=== PATIENT | female | born 1980 | race American Indian/Alaskan Native ===

== ENCOUNTER 2017-07-18 09:47 | Inpatient (IN) | payer OTHER ==
--- NOTE | 2017-07-18 10:49 | XRay Report ---
ROUTINE CHEST, TWO VIEWS: HISTORY: Shortness of breath. The trachea, heart, mediastinal contour, lung mcclain and bony thorax are unremarkable. IMPRESSION: Unremarkable chest x-ray.
[2017-07-18 11:35] LABS: Anion Gap 18 mmol/L; BUN/Creatinine Ratio 16; Blood Urea Nitrogen 8 mg/dL (7-17); Calcium 8.9 mg/dL (8.4-10.2); Carbon Dioxide 22 mmol/L (22-30); Chloride 104.1 mmol/L (98-107); Glucose 85 mg/dL (65-100); Potassium 3.9 mmol/L (3.6-5.0); Sodium 140 mmol/L (137-145)
[2017-07-18 11:39] LABS: Basophils % (Auto) 0.6 % (0.0-1.8); Eosinophils % (Auto) 0.7 % (0.0-4.3); Hematocrit 35.3 % (30.3-42.9); Hemoglobin 11.6 gm/dl (10.1-14.3); Mean Corpuscular HGB Conc 33 % (30-34); Mean Corpuscular Hemoglobin 26 pg (28-32); Mean Corpuscular Volume 79 fl (79-97); Platelet Count 304 K/mm3 (140-440); Red Blood Count 4.49 M/mm3 (3.65-5.03); Red Cell Distribution Width 14.2 % (13.2-15.2); White Blood Count 6.6 K/mm3 (4.5-11.0)
[2017-07-18 11:40] LABS: Diff Status Complete
[2017-07-18 12:11] LABS: INR 0.95 (0.87-1.13)
[2017-07-18 12:12] LABS: Partial Thromboplastin Time 28.6 Sec. (24.2-36.6)
[2017-07-18 12:34] LABS: Alanine Aminotransferase 28 units/L (7-56); Albumin 3.9 g/dL (3.9-5); Albumin/Globulin Ratio 1.5 %; Alkaline Phosphatase 78 units/L (35-129); Total Protein 6.5 g/dL (6.3-8.2)
[2017-07-18 12:36] LABS: Bilirubin,Direct < 0.2 mg/dL (0-0.2)
--- NOTE | 2017-07-18 14:28 | Emergency Department Report ---
ED Chest Pain HPI - General Chief Complaint: Chest Pain Stated Complaint: CP Time Seen by Provider: 07/18/17 10:54 Source: patient, EMS Mode of arrival: Wheelchair Limitations: No Limitations - History of Present Illness Initial Comments: Patient states she's had intermittent chest pain for the past 2 days. She states that [place] the airport. The chest pain began during exertion. She states that she's had some occasional cough. She's had some shortness of breath associated with the chest pain. The chest pain does not radiate. She denies nausea vomiting excessive sweating or dizziness. She' s had no prior cardiac workup. She denies leg pain or swelling. She's not had any recent travel. She has no family history of CAD/VTE that she is aware of. MD Complaint: chest pain -: Gradual Onset: during exertion Pain Location: substernal Pain Radiation: none Severity: moderate Severity scale (0 -10): 0 Quality: tightness Consistency: intermittent Improves With: nothing Worsens With: nothing re: denies: nausea, vomting, diaphoresis, dyspnea, sense of impending doom Other Symptoms: denies: cough, fever, syncope Treatments Prior to Arrival: none Aspirin use within the Past 7 Days: (0) No - Related Data Home Medications Medication Instructions Recorded Confirmed Last Taken No Known Home Medications [No 07/18/17 07/18/17 Unknown Reported Home Medications] Allergies Allergy/AdvReac Type Severity Reaction Status Date / Time No Known Allergies Allergy Unverified 07/18/17 10:07 Heart Score - HEART Score History: Moderately suspicious EKG: Non-specific Age: < 45 Risk factors: 1-2 risk factors Troponin: < normal limit HEART Score: 3 - Critical Actions Critical Actions: 0-3 pts:0.9-1.7%risk of adverse cardiac event.Candidate for discharge ED Review of Systems ROS: Stated complaint: CP Other details as noted in HPI Constitutional: denies: chills, fever Eyes: denies: eye pain, eye discharge, vision change ENT: denies: ear pain, throat pain Respiratory: shortness of breath. denies: cough, wheezing Cardiovascular: chest pain. denies: palpitations Endocrine: no symptoms reported Gastrointestinal: denies: abdominal pain, nausea, diarrhea Genitourinary: denies: urgency, dysuria, discharge Musculoskeletal: denies: back pain, joint swelling, arthralgia Skin: denies: rash, lesions Neurological: denies: headache, weakness, paresthesias Psychiatric: denies: anxiety, depression Hematological/Lymphatic: denies: easy bleeding, easy bruising ED Past Medical Hx - Past Medical History Previous Medical History?: No - Surgical History Past Surgical History?: No - Social History Smoking Status: Never Smoker Substance Use Type: Non Opiate Pain, Other - Medications Home Medications: Home Medications Medication Instructions Recorded Confirmed Last Taken Type No Known Home Medications [No 07/18/17 07/18/17 Unknown History Reported Home Medications] ED Physical Exam - General Limitations: No Limitations General appearance: alert, in no apparent distress - Head Head exam: Present: atraumatic, normocephalic - Eye Eye exam: Present: normal appearance, PERRL, EOMI. Absent: scleral icterus - ENT ENT exam: Present: mucous membranes moist - Neck Neck exam: Present: normal inspection - Respiratory Respiratory exam: Present: normal lung sounds bilaterally. Absent: respiratory distress - Cardiovascular Cardiovascular Exam: Present: regular rate, normal rhythm. Absent: systolic murmur, diastolic murmur, rubs, gallop - GI/Abdominal GI/Abdominal exam: Present: soft, normal bowel sounds. Absent: distended, tenderness, guarding, rebound, rigid - Extremities Exam Extremities exam: Present: normal inspection - Back Exam Back exam: Present: normal inspection - Neurological Exam Neurological exam: Present: alert, oriented X3, CN II-XII intact. Absent: motor sensory deficit - Psychiatric Psychiatric exam: Present: normal affect, normal mood - Skin Skin exam: Present: warm, dry, intact, normal color. Absent: rash ED Course Vital Signs 07/18/17 07/18/17 10:07 10:40 Temperature 98.5 F Pulse Rate 89 75 Respiratory 20 16 Rate Blood Pressure 140/77 Blood Pressure 142/84 [Left] O2 Sat by Pulse 100 100 Oximetry - Reevaluation(s) Reevaluation #1: I found that the patient does not yet have IV access. I discussed this with the patient. At this point she will not permit any further attempts at IV. However she states that she would allow the PICC team/vascular to attempt an IV with an ultrasound machine later. She will not allow an attempt at an EJ. He does not meet any reasonable criteria for an emergency central line. In any case he is not willing to have any additional closure at this time. This is then discussed with the hospitalist. She will be admitted for further care and evaluation. 07/18/17 14:28 STEPHANIE score - Stephanie Score Age > 65: (0) No Aspirin use within the Past 7 Days: (0) No 3 or more CAD Risk Factors: (0) No 2 or more Angina events in past 24 hrs: (0) No Known CAD with more than 50% Stenosis: (0) No Elevated Cardiac Markers: (0) No ST Deviation Greater than 0.5mm: (0) No STEPHANIE Score: 0 ED Medical Decision Making - Lab Data Result diagrams: 07/18/17 11:01 07/18/17 11:01 - EKG Data -: EKG Interpreted by Me EKG shows normal: sinus rhythm, axis, intervals, QRS complexes, ST-T waves Rate: normal - EKG Data Interpretation: no acute changes - Radiology Data Radiology results: report reviewed interpreted by me: Chest x-ray shows no acute process Critical care attestation.: If time is entered above; I have spent that time in minutes in the direct care of this critically ill patient, excluding procedure time. ED Disposition Clinical Impression: Chest pain Qualifiers: Chest pain type: unspecified Qualified Code(s): R07.9 - Chest pain, unspecified Disposition: DC-09 OP ADMIT IP TO THIS HOSP Is pt being admited?: Yes Does the pt Need Aspirin: Yes Condition: Stable Instructions: Chest Pain (ED) Referrals: PRIMARY CARE, [Primary Care Provider] - 3-5 Days Time of Disposition: 14:31
--- NOTE | 2017-07-18 15:07 | History and Physical Report ---
History of Present Illness Chief complaint: My chest hurts. History of present illness: 36 YO female with Obesity presents to ED for evaluation. Pt states that she has experienced pain in her chest over the past 2 days, with worsening symptoms over the past 8 hours. Pain is 4-6/10, intermittent, substernal, nonradiating, worse with exertion, relieved with rest, associated with shortness of breath, and diaphoresis. Pt denies fever, chills, palpitations, Syncope, productive cough, prolonged travel/immobility, individual/family history of DVT/PE, hemoptysis, unintentional weight loss, night sweats, or recent ill contacts. Pt seen and evaluated in ED and found to have symptoms of ACS as well as accelerated hypertension. [facility], and treated with supplemental oxygen, aspirin, nitro tabs, and morphine for pain. Past History Past Medical History: other (obesity) Past Surgical History: No surgical history, Other (reviewed) Social history: single. denies: smoking, alcohol abuse, prescription drug abuse Family history: hypertension Medications and Allergies Allergies Allergy/AdvReac Type Severity Reaction Status Date / Time No Known Allergies Allergy Unverified 07/18/17 10:07 Home Medications Medication Instructions Recorded Confirmed Last Taken Type No Known Home Medications [No 07/18/17 07/18/17 Unknown History Reported Home Medications] Review of Systems Constitutional: no weight loss, no weight gain, no fever, no chills Ears, nose, mouth and throat: no ear pain, no ear discharge, no tinnitis, no decreased hearing, no nose pain, no nasal congestion, no nasal discharge Breasts: no change in shape, no swelling, no mass Cardiovascular: chest pain, shortness of breath, no orthopnea, no palpitations, no rapid/irregular heart beat Respiratory: no cough, no cough with sputum, no excessive sputum, no hemoptysis Gastrointestinal: no abdominal pain, no nausea, no vomiting, no diarrhea Genitourinary Female: no dysmenorrhea, no pelvic pain, no flank pain, no menorrhagia Rectal: no pain, no incontinence, no bleeding Musculoskeletal: no neck stiffness, no neck pain, no shooting arm pain, no arm numbness/tingling Integumentary: no rash, no pruritis, no redness, no sores, no wounds, no jaundice Neurological: no transient paralysis, no paralysis, no weakness, no parathesias , no numbness, no tingling Psychiatric: no anxiety, no memory loss, no change in sleep habits, no sleep disturbances, no insomnia, no hypersomnia Endocrine: no cold intolerance, no heat intolerance, no polyphagia, no excessive thirst, no polydipsia, no polyuria Hematologic/Lymphatic: no easy bruising, no easy bleeding Allergic/Immunologic: no urticaria, no allergic rhinitis, no wheezing Exam - Constitutional Vitals: Temp Pulse Resp BP Pulse Ox 98.5 F 75 16 142/84 100 07/18/17 10:07 07/18/17 10:40 07/18/17 10:40 07/18/17 10:40 07/18/17 10:40 General appearance: Present: mild distress, obese - EENT Eyes: Present: PERRL ENT: hearing intact, clear oral mucosa - Neck Neck: Present: supple, normal ROM - Respiratory Respiratory effort: normal Respiratory: bilateral: CTA - Cardiovascular Heart Sounds: Present: S1 & S2. Absent: rub, click - Extremities Extremities: pulses symmetrical, No edema Peripheral Pulses: within normal limits - Abdominal General gastrointestinal: Present: soft, non-tender, non-distended, normal bowel sounds Female genitourinary: Present: normal - Integumentary Integumentary: Present: clear, warm, dry - Musculoskeletal Musculoskeletal: gait normal, strength equal bilaterally - Psychiatric Psychiatric: appropriate mood/affect, intact judgment & insight - Neurologic Neurologic: CNII-XII intact, moves all extremities Results - Labs CBC & Chem 7: 07/18/17 11:01 07/18/17 11:01 Labs: Abnormal lab results 07/18/17 07/18/17 Range/Units 11:01 11:01 MCH 26 L (28-32) pg Lymph % (Auto) 43.6 H (13.4-35.0) % [place] % (Auto) 8.9 H (0.0-7.3) % Creatinine 0.5 L (0.7-1.2) mg/dL Assessment and Plan - Patient Problems (1) ACS (acute coronary syndrome) Current Visit: Yes Status: Suspected Plan to address problem: Chest Pain protocol: Serial cardiac enzymes, ekg, telemetry, echo, stress test, Cardiology consulted, d dimer, lipid panel, morphine, supplemental oxygen, nitro , aspirin, (2) Obesity Current Visit: Yes Status: Acute Qualifiers: Body mass index: BMI 33.0-33.9 Plan to address problem: Balanced diet, increased physical activity, (3) Accelerated hypertension Current Visit: Yes Status: Acute Plan to address problem: monitor bp q shift, IV hydralazine prn (4) DVT prophylaxis Current Visit: Yes Status: Acute
[2017-07-18] MEDS ORDERED: DULCOLAX PR PRN (15:10)
[2017-07-18] MEDS ORDERED: ZOFRAN IV PRN (15:10)
[2017-07-18] MEDS ORDERED: PROVENTIL IH PRN (15:10)
[2017-07-18] MEDS ORDERED: TYLENOL PO PRN (15:10)
[2017-07-18] MEDS ORDERED: NITROSTAT SL PRN (15:10)
[2017-07-18] MEDS ORDERED: MILK OF MAGNESIA PO PRN (15:10)
[2017-07-18] MEDS ORDERED: SODIUM CHLORIDE FLUSH SYRINGE 10 ML IV PRN (15:10)
[2017-07-18] MEDS ORDERED: BABY ASPIRIN PO STA (15:24)
[2017-07-18] MEDS ORDERED: BABY ASPIRIN ONE ×2 (17:30→17:37)
[2017-07-19 07:09] VITALS: BP 108/57
--- NOTE | 2017-07-19 12:21 | Progress Note ---
Hospitalist Physical - Constitutional Vitals: Temp Pulse Resp BP Pulse Ox 98.3 F 74 16 108/57 99 07/19/17 05:14 07/19/17 05:14 07/19/17 05:14 07/19/17 05:14 07/19/17 05:14 General appearance: Present: mild distress, obese Results - Labs CBC & Chem 7: 07/18/17 11:01 07/18/17 11:01 Labs: Laboratory Last Values WBC 6.6 K/mm3 (4.5-11.0) 07/18/17 11:01 RBC 4.49 M/mm3 (3.65-5.03) 07/18/17 11:01 Hgb 11.6 gm/dl (10.1-14.3) 07/18/17 11:01 Hct 35.3 % (30.3-42.9) 07/18/17 11:01 MCV 79 fl (79-97) 07/18/17 11:01 MCH 26 pg (28-32) L 07/18/17 11:01 MCHC 33 % (30-34) 07/18/17 11:01 RDW 14.2 % (13.2-15.2) 07/18/17 11:01 Plt Count 304 K/mm3 (140-440) 07/18/17 11:01 Lymph % (Auto) 43.6 % (13.4-35.0) H 07/18/17 11:01 [place] % (Auto) 8.9 % (0.0-7.3) H 07/18/17 11:01 Eos % (Auto) 0.7 % (0.0-4.3) 07/18/17 11:01 Baso % (Auto) 0.6 % (0.0-1.8) 07/18/17 11:01 Lymph # 2.9 K/mm3 (1.2-5.4) 07/18/17 11:01 [place] # 0.6 K/mm3 (0.0-0.8) 07/18/17 11:01 Eos # 0.0 K/mm3 (0.0-0.4) 07/18/17 11:01 Baso # 0.0 K/mm3 (0.0-0.1) 07/18/17 11:01 Add Manual Diff Complete 07/18/17 11:01 Seg Neutrophils % 46.2 % (40.0-70.0) 07/18/17 11:01 Seg Neutrophils # 3.1 K/mm3 (1.8-7.7) 07/18/17 11:01 PT 13.2 Sec. (12.2-14.9) 07/18/17 11:49 INR 0.95 (0.87-1.13) 07/18/17 11:49 APTT 28.6 Sec. (24.2-36.6) 07/18/17 11:49 D-Dimer < 135.00 ng/mlDDU (0-234) 07/18/17 11:49 Sodium 140 mmol/L (137-145) 07/18/17 11:01 Potassium 3.9 mmol/L (3.6-5.0) 07/18/17 11:01 Chloride 104.1 mmol/L (98-107) 07/18/17 11:01 Carbon Dioxide 22 mmol/L (22-30) 07/18/17 11:01 Anion Gap 18 mmol/L 07/18/17 11:01 BUN 8 mg/dL (7-17) 07/18/17 11:01 Creatinine 0.5 mg/dL (0.7-1.2) L 07/18/17 11:01 Estimated GFR > 60 ml/min 07/18/17 11:01 BUN/Creatinine Ratio 16 % 07/18/17 11:01 Glucose 85 mg/dL (65-100) 07/18/17 11:01 Calcium 8.9 mg/dL (8.4-10.2) 07/18/17 11:01 Magnesium 1.80 mg/dL (1.7-2.3) 07/18/17 11:49 Total Bilirubin 0.20 mg/dL (0.1-1.2) 07/18/17 11:49 Direct Bilirubin < 0.2 mg/dL (0-0.2) 07/18/17 11:49 AST 19 units/L (5-40) 07/18/17 11:49 ALT 28 units/L (7-56) 07/18/17 11:49 Alkaline Phosphatase 78 units/L (35-129) 07/18/17 11:49 Troponin T < 0.010 ng/mL (0.00-0.029) 07/18/17 20:44 NT-Pro-B Natriuret Pep 16.03 pg/mL (0-450) 07/18/17 11:49 Total Protein 6.5 g/dL (6.3-8.2) 07/18/17 11:49 Albumin 3.9 g/dL (3.9-5) 07/18/17 11:49 Albumin/Globulin Ratio 1.5 % 07/18/17 11:49 HCG, Qual Negative (Negative) 07/19/17 07:19
--- NOTE | 2017-07-19 14:57 | Discharge Summary ---
<SANDRA GAYLE - Last Filed: 07/21/17 08:22> Providers - Providers Date of Admission: 07/18/17 15:10 Date of discharge: 07/19/17 Attending physician: MARCELINO CURRAN MD 07/18/17 Consult to Cardiac Rehabilitation [CONS] Routine Reason For Exam: Phase I 07/18/17 15:10 Consult to Cardiology [CONS] Routine Consulting Provider: OTONIEL BANKS Reason For Exam: acs Primary care physician: GALLERY DIRECTOR Hospitalization Condition: Stable Hospital course: 36 YO female with Obesity presents to ED for evaluation. Pt states that she has experienced pain in her chest over the past 2 days, with worsening symptoms over the past 8 hours. Pain is 4-6/10, intermittent, substernal, nonradiating, worse with exertion, relieved with rest, associated with shortness of breath, and diaphoresis. Pt denies fever, chills, palpitations, Syncope, productive cough, prolonged travel/immobility, individual/family history of DVT/PE, hemoptysis, unintentional weight loss, night sweats, or recent ill contacts. Chest Xray was unremarkable. Echo revealed EF of 55-60%. Thallium stress test was normal. Discharge Diagnosis Acute Coronary Syndrome Obesity Accelerated HTN Disposition: DC-01 TO HOME OR SELFCARE Core Measure Documentation - Palliative Care Palliative Care/ Comfort Measures: Not Applicable - Core Measures Any of the following diagnoses?: none Exam - Constitutional Vitals: Temp Pulse Resp BP Pulse Ox 98.3 F 74 16 108/57 99 07/19/17 05:14 07/19/17 05:14 07/19/17 05:14 07/19/17 05:14 07/19/17 05:14 General appearance: Present: no acute distress - EENT Eyes: Present: PERRL ENT: hearing intact, clear oral mucosa - Neck Neck: Present: supple, normal ROM - Respiratory Respiratory effort: normal Respiratory: bilateral: CTA - Cardiovascular Heart Sounds: Present: S1 & S2. Absent: rub, click - Extremities Extremities: pulses symmetrical, No edema Peripheral Pulses: within normal limits - Abdominal General gastrointestinal: Present: soft, non-tender, non-distended, normal bowel sounds Female genitourinary: Present: normal - Integumentary Integumentary: Present: clear, warm, dry - Musculoskeletal Musculoskeletal: gait normal, strength equal bilaterally - Psychiatric Psychiatric: appropriate mood/affect, intact judgment & insight - Neurologic Neurologic: CNII-XII intact, moves all extremities - Allied Health Allied health notes reviewed: nursing Plan Activity: fall precautions Weight Bearing Status: Full Weight Bearing Diet: low fat, low cholesterol, low salt Follow up with: PRIMARY CARE, [Primary Care Provider] - 3-5 Days Forms: Work/School Release Form <MARCELINO CURRAN - Last Filed: 07/22/17 12:32> Providers - Providers Date of Admission: 07/18/17 15:10 Attending physician: MARCELINO CURRAN MD 07/18/17 Consult to Cardiac Rehabilitation [CONS] Routine Reason For Exam: Phase I 07/18/17 15:10 Consult to Cardiology [CONS] Routine Consulting Provider: OTONIEL BANKS Reason For Exam: acs Primary care physician: GALLERY DIRECTOR Hospitalization Reason for admission: Atypical chest pain Pertinent studies: Thallium stress test negative for ischemia. Hospital course: Patient has musculoskeletal chest pain, didn't have ACS. Time spent for discharge: 31 minutes - Discharge Diagnoses (1) Accelerated hypertension Status: Acute (2) Atypical chest pain Status: Acute (3) Chest pain Status: Acute Qualifiers: Chest pain type: unspecified Qualified Code(s): R07.9 - Chest pain, unspecified (4) Obesity Status: Acute Qualifiers: Body mass index: BMI 33.0-33.9 Core Measure Documentation - Palliative Care Palliative Care/ Comfort Measures: Not Applicable - Core Measures Any of the following diagnoses?: none Exam - Constitutional Vitals: Temp Pulse Resp BP Pulse Ox 98.3 F 90 16 108/57 99 07/19/17 05:14 07/19/17 09:00 07/19/17 05:14 07/19/17 05:14 07/19/17 05:14 General appearance: Present: no acute distress - EENT Eyes: Present: PERRL ENT: hearing intact, clear oral mucosa, dentition normal - Neck Neck: Present: supple, normal ROM - Respiratory Respiratory effort: normal Respiratory: bilateral: CTA - Cardiovascular Heart Sounds: Present: S1 & S2 - Extremities Extremities: pulses symmetrical, No edema Peripheral Pulses: within normal limits - Abdominal General gastrointestinal: Present: soft, non-tender, normal bowel sounds - Integumentary Integumentary: Present: clear, warm, dry - Musculoskeletal Musculoskeletal: strength equal bilaterally - Psychiatric Psychiatric: appropriate mood/affect, intact judgment & insight - Neurologic Neurologic: CNII-XII intact, moves all extremities - Allied Health Allied health notes reviewed: nursing Plan Activity: no restrictions Weight Bearing Status: Full Weight Bearing Diet: low fat, low cholesterol, low salt
--- NOTE | 2017-07-19 19:13 | Consultation ---
History of Present Illness Consult date: 07/19/17 Consult reason: chest pain History of present illness: Patient is a 36-year-old woman who is admitted with chest pain. She describes continued accident cough of 3-4 days duration, following which she developed chest pain which was specifically described as worse with her coughing. There was no exertional chest pain or angina type symptoms. She presented to the emergency room where she was evaluated and referred for admission. Cardiology consult, thallium stress test and echocardiogram were ordered the medical service. ECG was normal sinus rhythm, normal ECG. Cardiac enzymes were normal. On the stress test today, the patient exercised for 7 minutes of a Nate protocol, there was no chest pain, no ST changes of ischemia. Thallium images were normal. Echocardiogram was normal left ventricular systolic function, ejection fraction 60%, no significant valvular lesions. Past History Past Medical History: other (obesity) Past Surgical History: No surgical history, Other (reviewed) Social history: single. denies: smoking, alcohol abuse, prescription drug abuse Family history: hypertension Medications and Allergies Allergies Allergy/AdvReac Type Severity Reaction Status Date / Time No Known Allergies Allergy Unverified 07/18/17 10:07 Review of Systems Cardiovascular: chest pain, shortness of breath, no orthopnea, no palpitations, no rapid/irregular heart beat, no edema, no syncope, no lightheadedness Physical Examination Vital Signs Temp Pulse Resp BP Pulse Ox 98.5 F 89 20 140/77 100 07/18/17 10:07 07/18/17 10:07 07/18/17 10:07 07/18/17 10:07 07/18/17 10:07 General appearance: no acute distress HEENT: Positive: PERRL Neck: Positive: neck supple Cardiac: Positive: Reg Rate and Rhythm Lungs: Positive: Decreased Breath Sounds Neuro: Positive: Grossly Intact Abdomen: Positive: Soft Female genitourinary: deferred Skin: Positive: Clear Extremities: Absent: edema Results 07/18/17 11:01 07/18/17 11:01 EKG interpretations - Telemetry EKG Rhythm: Sinus Rhythm Assessment and Plan - Patient Problems (1) Atypical chest pain Status: Acute Plan to address problem: Chest pain is atypical, appears musculoskeletal, aggravated by spells of coughing. On the stress test today, the patient exercised for 7 minutes of a Nate protocol, there was no chest pain, no ST changes of ischemia. Thallium images were normal. Echocardiogram was normal left ventricular systolic function, ejection fraction 60%, no significant valvular lesions. Cardiac status is stable for discharge.
--- NOTE | 2017-07-20 06:42 | Treadmill Report ---
THALLIUM STRESS TEST LEFT VENTRICLE: Left ventricular chamber size is within normal spread. Perfusion study demonstrates homogeneous uptake of the tracer in all segments, no significant perfusion defects identified. Gated analysis demonstrates normal left ventricular systolic function, ejection fraction is greater than 70%. CONCLUSION: Normal myocardial perfusion study. JOB# [id number] CA/NTS
== END 2017-07-19 17:32 | disposition home or self-care (01) | DRG 313 ==
LOC: ED 09:47 → 4A 15:10
PROVIDERS: ADMIT Internal Medicine; ATTEND Internal Medicine
PROC: 4A033R1 Measurement of Arterial Saturation, Peripheral, Percutaneous Approach (ICD-10-PCS; principal; 2017-07-18)
DX: R07.89 Other chest pain (principal); E66.9 Obesity, unspecified; I10 Essential (primary) hypertension; Z82.49 Family history of ischemic heart disease and other diseases of the circulatory system; Z68.33 Body mass index [BMI] 33.0-33.9, adult
CPT/HCPCS: 36415; 71020; 78452; 80048; 80074; 83735; 83880; 84484; 84703; 85025; 85379; 85610; 85730; 93005; 93010; 93017; 93306; A9502